=== PATIENT | male | born 1990 | race Caucasian/White ===

== ENCOUNTER 2019-01-05 07:44 | Emergency (ER) | payer SELFPAY ==
[~2019-01-05] VITALS: Ht 175.3 cm; Wt 163.3 kg
[2019-01-05 07:44] VITALS: BP 146/86
--- NOTE | 2019-01-05 08:15 | NUR ---
Patient discharged to home in stable condition. Written and verbal after care instructions given. Patient verbalizes understanding of instruction.
== END 2019-01-05 08:32 | disposition home or self-care (01) ==
LOC: EDBD 07:48 → ER 07:48
DX: M25.562 Pain in left knee (principal); W01.0XXA Fall on same level from slipping, tripping and stumbling without subsequent striking against object, initial encounter; Y93.39 Activity, other involving climbing, rappelling and jumping off; Y92.89 Other specified places as the place of occurrence of the external cause; Y99.8 Other external cause status

== ENCOUNTER 2022-01-03 04:08 | Emergency (ER) | payer SELFPAY ==
[~2022-01-03] VITALS: Ht 175.3 cm; Wt 158.8 kg
--- NOTE | 2022-01-03 04:27 | NUR ---
BIBS C/O SOB X FEW DAYS WORST TODAY WITH CONGESTION AND COUGH. PATIENT ALERT AND ORIENTED X3. AMBULATORY PLACED IN BED 07 ON MONITOR AND POX.
--- NOTE | 2022-01-03 04:28 | NUR ---
XRAY AT BEDSIDE
[2022-01-03] MEDS ORDERED: ALBUTEROL FS 2.5 MG/0.5 ML VIAL.NEB NEB ONE (05:30)
--- NOTE | 2022-01-03 05:37 | NUR ---
CALLED RT FOR BREATHING TX
[2022-01-03] MEDS ORDERED: ALBU6.7H9 INH (05:56)
[2022-01-03] MEDS ORDERED: ALBUTEROL FS 2.5 MG/0.5 ML VIAL.NEB ONE (06:00)
--- NOTE | 2022-01-03 06:03 | NUR ---
RT AT PT'S BEDSIDE
--- NOTE | 2022-01-03 06:23 | NUR ---
PT DISCHARGED DISCHARGE PAPER WORK GIVEN TO PT. PT AMBULATED AND LEFT IN STABLE CONDITION
[2022-01-03 06:25] VITALS: BP 140/92
== END 2022-01-03 06:25 | disposition home or self-care (01) ==
LOC: ER 04:09
DX: J98.01 Acute bronchospasm (principal); Z60.2 Problems related to living alone; Z79.899 Other long term (current) drug therapy
CPT/HCPCS: 71045-TC